=== PATIENT | male | born 1940 | race Caucasian/White ===

== ENCOUNTER 2024-04-05 12:40 | Outpatient (RCR) | payer MEDICARE, OTHER, SELFPAY | END 2024-04-05 23:59 | disposition home or self-care (01) | LOC: RPT 12:40 | PROVIDERS: ATTENDING PHYSICIAN Neurological Surgery; FAMILY PHYSICIAN Internal Medicine | DX: M54.2 Cervicalgia (principal); S12.100D Unspecified displaced fracture of second cervical vertebra, subsequent encounter for fracture with routine healing | CPT/HCPCS: 97110; 97112; 97162; 97535 ==